=== PATIENT | male | born 1950 | race Caucasian/White ===

== ENCOUNTER 2018-06-19 22:22 | Observation (INO) | payer MEDICARE, OTHER ==
[2018-06-20] MEDS ORDERED: Ondansetron PF 4 MG/2 ML Vial IVP PRN (02:25)
[2018-06-20] MEDS ORDERED: Ondansetron ODT 4 MG TAB SL PRN (02:25)
[2018-06-20] MEDS ORDERED: Acetaminophen 325 MG TAB PO PRN (02:25)
[2018-06-20 02:41] VITALS: BMI 16.9
[2018-06-20] MEDS ORDERED: Senokot S 8.6-50 MG TAB PO PRN (10:13)
[2018-06-20] MEDS ORDERED: ALPRAZolam 0.25 MG TAB PO PRN (10:43)
[2018-06-20 10:46] LABS: Hemoglobin 16.3 g/dL (14.0-18.0); Mean Corpuscular HGB CONC 33.7 g/dL (32.0-36.0); Mean Corpuscular Hemoglobin 30.9 pg (27.0-31.0); Mean Corpuscular Volume 91.6 fL (78.0-98.0); Mean Platelet Volume 6.8 fL (7.4-10.4); Platelet Count 341 thou/uL (130-400); RBC Distribution Width 12.6 % (11.5-14.5); Red Blood Cell (RBC) Count 5.28 mill/uL (4.70-6.10); White Blood Cell (WBC) Count 8.9 thou/uL (4.8-10.8)
[2018-06-20 11:11] LABS: ALT (SGPT) 26 U/L (8-55); AST (SGOT) 28 U/L (5-34); Albumin 4.4 g/dL (3.4-4.8); Alkaline Phosphatase 68 U/L (40-150); Anion Gap 17 mmol/L (10-20); BUN (Urea Nitrogen) 19 mg/dL (8.4-25.7); Band 6 % (5-11); Bilirubin, Total 1.1 mg/dL (0.2-1.2); Calc. Creatinine Clearance 59 mL/min (70-130); Calcium 10.4 mg/dL (7.8-10.44); Carbon Dioxide 23 mmol/L (23-31); Chloride 92 mmol/L (98-107); Estimated GFR-MDRD Greater than 90; Globulin 3.1 g/dL (2.4-3.5); Glucose 97 mg/dL (80-115); Lymphocytes 29 % (21-51); MDiff Complete? YES; Monocytes 10 % (0-10); Neutrophil 53 % (42-75); Potassium 4.7 mmol/L (3.5-5.1); Protein, Total 7.5 g/dL (5.8-8.1); Reactive Lymphocytes 2 % (0-10); Sodium 127 mmol/L (136-145)
[2018-06-20 11:13] LABS: Troponin I Less than 0.010 ng/mL (< 0.028)
--- NOTE | 2018-06-20 11:35 | HP ---
CHIEF COMPLAINT: Worsening shortness of breath. HISTORY OF PRESENT ILLNESS: A 67-year-old male with known history of COPD, on home bronchodilators; hypertension, currently not on any medication, who continues to smoke about a pack a day, admitted due to worsening shortness of breath. The patient reportedly fell down about 6 days ago on June 14, 2018, following which he started having increasing shortness of breath as well as right-sided lower chest pain making it difficult to breathe. Shortness of breath worsened such that the patient was seen at the [facility] on June 18. The patient was treated with bronchodilators and was to be evaluated for that with imaging, but he left. He, however, returned to the ER the next day due to worsening respiratory symptoms and was subsequently transferred over here for further evaluation and treatment due to persistent tachypnea, tachycardia, and shortness of breath despite several rounds of bronchodilators. The patient reports feeling better, but admitted to a few episodes of diarrhea on June 19, but denied nausea or vomiting. He reported poor oral intake since onset of symptoms. He, however, admitted to drinking beers up to five a day. He denied anterior chest pain, palpitations, fever, leg swelling, dysuria, hematuria, change in bowel habit, hematemesis or hematochezia. Of note, the patient was treated with several rounds of bronchodilators, a dose of Rocephin, a dose of steroid and a dose of magnesium sulfate before transfer to this hospital. He also was noted to have hyponatremia with sodium of 126. Of note, on June 18, sodium was 136. He also was evaluated at the [facility] with CT angio which was negative for PE. PAST MEDICAL HISTORY: 1. Diverticulosis. 2. Hypertension. The patient reportedly has been on antihypertensives in the past but had stopped due to adverse reaction. He, however, was unable to tell me what antihypertensives he had tried before except lisinopril, which he said caused facial swelling. 3. COPD. 4. Anxiety. 5. Tobacco abuse disorder. 6. Chronic alcohol use. PAST SURGICAL HISTORY: Incision and drainage of abscess. FAMILY HISTORY: Significant for hypertension and glaucoma in mother and hypertension, heart failure, and diabetes in father who is late at this time. SOCIAL HISTORY: The patient lives with family. He admitted to smoking up to a pack per day. He also admitted to drinking 3 to 6 beers every day all most. He denied recreational drug use. ALLERGIES: HE REPORTED ALLERGIC REACTION TO LISINOPRIL AND LEVAQUIN. LEVAQUIN REPORTEDLY CAUSED LEG SWELLING AND LISINOPRIL CAUSED FACIAL SWELLING. CURRENT MEDICATIONS: Home medications (albuterol nebulization every 6 hours p.r.n.) Budesonide/formoterol two puffs inhalation b.i.d. REVIEW OF SYSTEMS: Twelve-point review of system performed was negative other than pertinent positives and negatives included in the history of present illness. PHYSICAL EXAMINATION: VITAL SIGNS: On presentation to [facility] on June 19, 2018, the patient has the following vitals; blood pressure 199/125, pulse rate 114, respiratory rate 24, temperature 98.7, SpO2 of 98 on room air. Current vitals today, June 20, 2018, showed temperature 97.8, pulse 114, respiratory rate 20, SpO2 of 93 on room air, blood pressure is 154/95. GENERAL: Chronically ill-looking elderly male, in mild respiratory distress. Afebrile. Anicteric. Acyanotic. HEENT: Normocephalic, atraumatic. Pupils are equal and reacting to light. NECK: No JVD or no masses appreciated. Supple with full range of motion. RESPIRATORY: Fair air entry with prolonged expiration. No obvious rhonchi was however appreciated. Work of breathing is increased. Tenderness at the right lower chest noted with a small bruise. CARDIOVASCULAR: Regular rhythm but tachycardic. Normal heart sounds 1 and 2. GI: Abdomen is full, soft, nontender, nondistended with normal bowel sounds. EXTREMITIES: Grossly normal looking atraumatic with no obvious edema or erythema. NEUROLOGIC: Conscious and alert and oriented x3 with appropriate mental status. Cranial nerves 2 through 12 are intact. The patient moves all extremities. Fine tremor noted. DIAGNOSTIC DATA: CBC performed on June 19, 2018 at [facility] showed WBC count of 6.9, hemoglobin of 15.7, MCV of 90.6, platelet of 309. CMP of June 19, 2018, showed sodium 126, potassium 4.6, chloride 90, CO2 of 22, anion gap 19, BUN 8, creatinine 0.75, glucose 135, total calcium 10.7, total bilirubin 1.4, total protein 8.0, albumin 4.8, alkaline phosphatase 80, AST 37, ALT 31. Lactic acid performed on June 19, 2018, was 1.9. Troponin performed on June 19, 2018 at 1848 hours was 0.013. BMP of June 19, 2018 was 291. EKG performed on June 19, 2018 showed sinus tachycardia with rate of 114. No obvious ischemic changes were noted. X-ray of the ribs performed on June 18, 2018 showed intact and unremarkable ribs with no obvious fracture. CTA chest performed on June 19, 2018 showed no evidence of pulmonary embolism. Chronic lung parenchymal changes of stranding and parenchymal scarring in the right upper lung with peribronchial cuffing and prominent bullous changes were noted as well as nonspecific mediastinal and right hilar lymph nodes. ASSESSMENT: 1. Acute respiratory insufficiency. 2. Chronic obstructive pulmonary disease with acute exacerbation. 3. Right lower pleuritic chest pain and tenderness due to trauma. Imaging of the chest was negative for rib fracture 4. Acute hyponatremia.Most likely due to poor oral intake and chronic alcohol abuse. dehydraution with appropriate ADH secretion is contributory 5. Uncontrolled hypertension. 6. Chronic alcohol use: High risk for withdrawal symptoms. 7. Sinus tachycardia: Most likely due to dehydration from poor oral intake. Cardiac pathology like acute NSTEMI is a concern. Sepsis also is a concern 8. Systemic inflammatory response syndrome given tachycardia and tachypnea. Of note, white cell count and lactic acid levels were normal. Related to dehydration and COPD exacerbation. 9. Tobacco abuse disorder. 10. Moderate protein calorie malnutrition. 11. Dehydration PLAN: 1. We will get stat CMP, stat CBC and start troponin as well as urine osmolality. 2. We will start the patient on IV fluid therapy with normal saline at 50 mL/ hour. 3. We will also start the patient on bronchodilators, steroids, antibiotics, and mucolytics. 4. We will start the patient on amlodipine 5 mg for blood pressure control. 5. DVT prophylaxis with Lovenox will be provided. 6. Nicotine, tobacco. Smoking cessation counseling and education were provided. We will also start the patient on nicotine patch. 7. We will monitor the patient closely and treat with benzodiazepine for alcohol withdrawal as needed. CODE STATUS: Full code. The patient's son is the surrogate decision maker. Job ID: [id number] MTDD
[2018-06-20] MEDS ORDERED: predniSONE 20 MG TAB PO SCH (13:00)
[2018-06-20] MEDS ORDERED: Enoxaparin Sodium 30 MG/0.3 ML SYRINGE SC SCH (13:00)
[2018-06-20] MEDS ORDERED: Amlodipine 5 MG TAB PO SCH (13:00)
[2018-06-20] MEDS: Sodium Chloride 0.9% 1,000 ML IV SCH ×2 (13:11→21:56)
[2018-06-20] MEDS: Nicotine 21 MG PATCH TD SCH (13:19)
[2018-06-20] MEDS ORDERED: cefTRIAXone\\ROCEPHIN 1 GM in Sodium Chloride 0.9% 100 ML IVPB SCH (21:00)
[2018-06-20] MEDS: predniSONE 20 MG TAB PO SCH (21:50)
[2018-06-20] MEDS: guaiFENesin ER 600 MG TAB PO SCH (21:50)
[2018-06-20] MEDS: Famotidine 20 MG TAB PO SCH (21:51)
[2018-06-21 06:40] LABS: Anion Gap 12 mmol/L (10-20); BUN (Urea Nitrogen) 15 mg/dL (8.4-25.7); Calc. Creatinine Clearance 66 mL/min (70-130); Calcium 9.2 mg/dL (7.8-10.44); Carbon Dioxide 24 mmol/L (23-31); Chloride 97 mmol/L (98-107); Estimated GFR-MDRD Greater than 90; Glucose 134 mg/dL (80-115); Potassium 4.3 mmol/L (3.5-5.1); Sodium 129 mmol/L (136-145)
[2018-06-21] MEDS: Amlodipine 5 MG TAB PO SCH ×2 (08:21→08:24)
[2018-06-21] MEDS: Famotidine 20 MG TAB PO SCH (08:21)
[2018-06-21] MEDS: guaiFENesin ER 600 MG TAB PO SCH (08:21)
[2018-06-21] MEDS: predniSONE 20 MG TAB PO SCH (08:21)
[2018-06-21] MEDS ORDERED: Azithromycin 250 MG TAB PO SCH (09:00)
[2018-06-21] MEDS ORDERED: Enoxaparin Sodium 30 MG/0.3 ML SYRINGE SC SCH (09:00)
[2018-06-21 11:21] VITALS: BP 148/81; TEMP 98
--- NOTE | 2018-06-21 11:50 | PRG ---
DATE OF SERVICE: 06/21/2018 SUBJECTIVE: I discussed the case with Linus Lowery, reviewed the records, and examined the patient. He is feeling significantly better. Feels like his breathing is back to baseline. Says he has a number of social issues going on at home that he needs to get home to deal with and certainly feels like he is fully capable of doing that at this time. OBJECTIVE: VITAL SIGNS: Temperature is 98.3, pulse is 94 to 113, respirations 14 to 22, O2 saturation 93% on room air, BP 132/66. GENERAL APPEARANCE: Age-appropriate male, fully thin, no distress. He is fully awake, alert, oriented, pleasant, cooperative, speaking in full sentences. HEART: Tachycardic with no murmurs. LUNGS: Diminished, but no wheezes or rales. LABORATORY DATA: Sodium is slightly up at 129. IMPRESSION AND PLAN: 1. Acute hypoxic respiratory failure, improved. 2. Chronic obstructive pulmonary disease exacerbation, back to baseline. We will continue with home nebulizer treatments on a short steroid taper. 3. Pleuritic chest pain, stable. 4. Hyponatremia, likely beer potomania. It is slightly better since he is here in the hospital. He is asymptomatic. 5. Hypertension, continue outpatient treatment. 6. Chronic alcohol use. The patient would benefit from early discharge to resume his consumption rather than risking significant withdrawal symptoms. He is not preparing to quit at this time. 7. Sinus tachycardia. The patient appears to be quite normal and stable at his baseline. He has been hydrated and at this point would be more concerning for possibility of withdrawal. 8. Disposition discussed with Linus. We will discharge the patient to home. He will have a short steroid taper. He will be on some p.o. antibiotics, but likely just something along the lines of doxycycline. The patient can follow up with his PCP and return to the hospital should he have any problems prior to that time. Job ID: [id number]
[2018-06-21] MEDS: Nicotine 21 MG PATCH TD SCH (11:59)
== END 2018-06-21 13:35 | disposition home or self-care (01) ==
LOC: ERS 22:22 → T4-A 06-20 00:05 → ERS 06-20 02:16
PROVIDERS: ADMIT Hospitalist; ATTEND Hospitalist
DX: J96.01 Acute respiratory failure with hypoxia (principal); J44.1 Chronic obstructive pulmonary disease with (acute) exacerbation; E87.1 Hypo-osmolality and hyponatremia; I10 Essential (primary) hypertension; F17.210 Nicotine dependence, cigarettes, uncomplicated; K57.90 Diverticulosis of intestine, part unspecified, without perforation or abscess without bleeding; F41.9 Anxiety disorder, unspecified; E44.0 Moderate protein-calorie malnutrition; Z68.1 Body mass index [BMI] 19.9 or less, adult; Z88.8 Allergy status to other drugs, medicaments and biological substances; Z88.1 Allergy status to other antibiotic agents; Z79.52 Long term (current) use of systemic steroids; Z79.2 Long term (current) use of antibiotics; Z79.899 Other long term (current) drug therapy; Z98.890 Other specified postprocedural states
CPT/HCPCS: 80048; 80053; 83935; 84484; 85025; 94640 ×3; 96361; 96365; 96372; 99285; G0378 ×2; 36415; J0696; J1650; J7050; J7620